=== PATIENT | male | born 1965 | race Caucasian/White ===

== ENCOUNTER 2019-10-07 19:45 | Inpatient (IN) | payer OTHER ==
[~2019-10-07] VITALS: Ht 172.7 cm; Wt 97.7 kg
[~2019-10-07 19:45] MED LIST: CYCL10 PO; ERYT.5TO LEFTEYE; GLIP10 PO; IBUP800 PO; METF500C PO; PREG100 PO
[2019-10-07 20:26] LABS: BASOPHILS ABSOLUTE AUTO 0.14 K/mm3 (0.00-0.23); BASOPHILS PERCENT AUTO 1 % (0-2); EOSINOPHILS ABSOLUTE AUTO 1.39 K/mm3 (0.00-0.68); EOSINOPHILS PERCENT AUTO 14 % (0-6); Hematocrit 43.6 % (37.0-53.0); Hemoglobin 13.7 g/dL (13.5-17.5); IMMATURE GRAN ABSOLUTE AUTO 0.02 K/mm3 (0.00-0.10); IMMATURE GRAN PERCENT AUTO 0 % (0-1); LYMPHOCYTES ABSOLUTE AUTO 1.77 K/mm3 (0.84-5.20); LYMPHOCYTES PERCENT AUTO 17 % (21-46); MONOCYTES ABSOLUTE AUTO 0.55 K/mm3 (0.16-1.47); MONOCYTES PERCENT AUTO 5 % (4-13); Mean Corpuscular HGB 26.6 pg (26.0-34.0); Mean Corpuscular HGB Conc 31.4 g/dL (31.5-36.5); Mean Corpuscular Volume 85 fL (80-100); Mean Platelet Volume 10.3 fL (9.1-12.4); NEUTROPHILS ABSOLUTE AUTO 6.37 K/mm3 (1.96-9.15); NEUTROPHILS PERCENT AUTO 62 % (41-73); Platelet Count 237 K/mm3 (150-400); RDW Coefficient Variation 14.3 % (11.7-14.2); Red Blood Cell Count 5.16 M/mm3 (4.30-5.90); White Blood Cell Count 10.24 K/mm3 (4.00-11.30)
[2019-10-07 20:46] LABS: Alanine Aminotransfer (ALT/SGP 56 U/L (12-78); Albumin, Blood 4.1 g/dL (3.4-5.0); Albumin/Globulin Ratio 1.2 (0.8-1.8); Alk Phos 86 U/L (50-136); Anion Gap 2 mmol/L (6-16); Aspartate Aminotrans (AST/SGOT 43 U/L (12-37); Bilirubin, Total 0.2 mg/dL (0.1-1.0); Blood Urea Nitrogen 10 mg/dL (8-24); Bun/Creatinine Ratio 12.9 (12.0-20.0); CO2, Blood 32 mmol/L (21-32); Calcium, Blood 9.3 mg/dL (8.5-10.1); Chloride, Blood 101 mmol/L (98-108); Creatinine, Blood 0.77 mg/dL (0.60-1.20); Globulin, Blood 3.3 g/dL (2.2-4.0); Glomerular Filtration Rate >60 (60-); Glucose, Blood 141 mg/dL (70-99); Potassium, Blood 4.1 mmol/L (3.5-5.5); Sodium, Blood 135 mmol/L (136-145); Total Protein, Blood 7.4 g/dL (6.4-8.2); Troponin I 0.021 ng/mL (0.000-0.040)
[2019-10-07] MEDS ORDERED: METO25ER PO (22:09)
[2019-10-07] MEDS ORDERED: Lyrica150 MG PO (22:09)
[2019-10-07] MEDS ORDERED: ATOR20 PO (22:09)
--- NOTE | 2019-10-08 | NUR ---
PATIENT ARRIVED TO ICU 10 VIA GURNEY FROM ED WITH NITRO DRIP INFUSING AT 10 MCG FOR HYPERTENSION. ON 2L/NC. PATIENT TRANSFERRING SELF TO BED, REFUSING TO TAKE PANTS OFF AT THIS TIME. PATIENT PLACED ON ICU MONITORS. PATIENT ABLE TO AMBULATE TO TOILET WITHOUT DIFFICULTY. PATIENT VERBALIZED THAT HE HAS CHRONIC BACK PAIN, REQUESTING HIS ROUTINE NIGHT MEDICATIONS TO HELP WITH HIS BACK PAIN. DOCTOR PAULO CALLED AND ORDERS OBTAINED.
--- NOTE | 2019-10-08 06:51 | NUR ---
SUMMARY PATIENT AWAKE UP IN CHAIR, C/O BACK PAIN CHRONIC IN NATURE, BUT MORE PAINFUL THAN NORMAL. PATIENTS NORMAL HS MEDICATIONS ORDERED AND GIVEN. NITRO DRIP CONTINUES TITRATED TO 20 MCG. PATIENT VERBALIZED THAT HE IS PLANING ON GOING HOME THIS MORNING, DESPITE NEED FOR NITRO DRIP, AND PLAN FOR ECHO TODAY.
--- NOTE | 2019-10-08 07:34 | NUR ---
ASSUMED CARE: RECEIVED BEDSIDE REPORT FROM NOC RN. PT IS SITTING UP IN THE RECLINER WITH SON AT HIS SIDE. PT VERBALIZES IT IS OK TO DO REPORT WITH SON IN THE ROOM. PT ACTIVLY PARTICIPATES VERBALY WITH REPORT. PT IS CURRENTLY ON NITRO DRIP AT 20 MCG/MIN. PT APPEARS ANXIOUS ABOUT WANTING TO BE DISHCARGED AND CONTINUES TO ASK WHEN THE DR WILL BE IN AND IF HE WILL BE GETTING DISCHARGED. WILL CONTINUE TO MONITOR.
--- NOTE | 2019-10-08 14:38 | NUR ---
UPDATE & STATUS CHANGE: CALLED DR BOYD TO DISCUSE PLAN OF CARE. NITRO TO BE TURNED OFF AND DR BOYD IS PLACING PRN MEDICATIONS FOR ELIVATED BP. STATUS CHANGE TO MEDICAL WITH TELE. WILL CONTINUE TO MONITOR. NITRO OFF AT THIS TIME.
--- NOTE | 2019-10-08 14:45 | NUR ---
DIFFICULT TO WAKE: PT IS NOTED TO BE SLEEPING UPON ENTERING THE ROOM. SON IS AT BEDSIDE. PT IS TOLD MEDICATIONS ARE SCHEDULED TO BE GIVEN AT THIS TIME. PT APPEARS TO WAKE SLIGHTLY, BUT UPON FURTHER ASSESSMENT IS CLEARLY NOT AWAKE. SON APPEARS TO BECOME CONCERNED WELL AND STANDS AT THE BEDSIDE AND SHAKES PATIENTS SHOLDER. UPON FURTHER VERBAL STIMULATION PT STATES HE IS IN [place], BUT EVENTUALLY STATES [facility] AND IS ABLE TO STATE WHAT BROUGHT HIM IN TO THE HOSPITAL AND EARLIER CONVERSATIONS WORD FOR WORD THAT WERE HAD WHEN THE DR WAS IN THE ROOM EARLIER IN THE DAY.
--- NOTE | 2019-10-08 15:29 | NUR ---
Echocardiogram completed.
--- NOTE | 2019-10-08 17:35 | NUR ---
SHIFT SUMMARY: NGT DRIP WAS TURNED OFF AND PT BP HAS STABALIZED KEEPING SBP BELOW 160 WITH NEW PO MEDICTIONS ORDERED AND PRN HYDRALAZINE ORDERED PRN. PT HAS APPEARED TO BE RESTING MOST OF THE DAY EITHER IN THE BED OR IN THE RECLINER. PT HAS REQUIRED 3L O2 VIA NC TO KEEP O2 SATS >90%. PT IS USUALLY ON RA AT HOME. PT STATES SOME ANXIETY TO BEING IN THE HOSPITAL STATING HIS MIND SET IS "YOU GO TO THE HOSPITAL TO ". PT HAS BEEN VERY COOPERATIVE AND PLESENT T/O THE DAY. CALL LIGHT IN REACH. BED IN LOWEST POSSITION. WILL CONTINUE TO MONITOR AND REPORT TO ONCOMING RN.
--- NOTE | 2019-10-08 20:00 | NUR ---
ASSUMPTION OF CARE: PT A&O. IN ST, HR IN THE 100S, SBP 130-160S. BLE EDEMA DECREASING. LUNG SOUNDS CLEAR AND DIM IN BASES. SPO2 >90% ON 4L NC. PT ABLE TO VOID ON OWN. PT HAS 2 IVS IN L ARM. SL AND PATENT. PT CURRENTLY UP IN CHAIR WATCHING TV
--- NOTE | 2019-10-09 05:33 | NUR ---
NO ACUTE CHANGES THROUGHOUT SHIFT. PT RESTED COMFORTABLY. VITALS REMAINED STABLE. PT DID NOT HAVE ANY COMPLAINTS. WILL PASS REPORT TO NEXT SHIFT
--- NOTE | 2019-10-09 08:10 | NUR ---
ASSUMED CARE: REPORT RECEIVED FROM MARGARITA Mercedes RN. ASSUMED CARE OF THIS PT AT APPROX [phone]. ON ASSESSMENT, PT IS A&O, PLEASANT & COOPERATIVE. HE IS INDEPENDENT WITHIN THE ROOM & CALLS APPROPRIATELY FOR ASSISTANCE. LS ARE WHEEZING T/O, FINE CRACKLES NOTED TO RLL. PT CURRENTLY ON 4L NC W/ O2 SATS > 90%. MONITOR SHOWS SR W/ HR 80s, HTN IMPROVING. NO GI/ COMPLAINTS, VOIDS W/O DIFFICULTY. SKIN CDI. WILL CONTINUE TO MONITOR & UPDATE NEEDED.
[2019-10-09 08:52] LABS: Anion Gap 3 mmol/L (6-16); Blood Urea Nitrogen 25 mg/dL (8-24); Bun/Creatinine Ratio 35.9 (12.0-20.0); CO2, Blood 31 mmol/L (21-32); Calcium, Blood 9.2 mg/dL (8.5-10.1); Chloride, Blood 103 mmol/L (98-108); Glomerular Filtration Rate >60 (60-); Glucose, Blood 143 mg/dL (70-99); Potassium, Blood 4.2 mmol/L (3.5-5.5); Sodium, Blood 137 mmol/L (136-145)
--- NOTE | 2019-10-09 11:04 | NUR ---
DR BOYD: PROVIDER AT BEDSIDE TO EVAL PT. PT HAS BEEN PLACED ON 2L NC & THEN ON RA TO MONITOR O2 SATS HE WISHES TO GO HOME. PT TOLERATING RA WELL W/ O2 SATS > 90%, NO DESATURATIONS NOTED W/ ACTIVITY. CXR COMPLETED & PT MAY BE ABLE TO D/C HOME THIS AFTERNOON DEPENDING ON RESULTS OF IMAGING.
[2019-10-09] MEDS ORDERED: ASPI81CH PO (11:49)
[2019-10-09] MEDS ORDERED: NORVASC5 MG PO (11:49)
[2019-10-09] MEDS ORDERED: LISI20 PO (11:54)
[2019-10-09] MEDS ORDERED: TRAM50 PO (12:03)
[2019-10-09] MEDS ORDERED: DEEP SEA44 ML (12:03)
--- NOTE | 2019-10-09 13:45 | NUR ---
Pt. is doing well encouraged him and offered prayers
--- NOTE | 2019-10-09 14:30 | NUR ---
DISCHARGE TO HOME: PT TAKEN OUT VIA WC AT 1430 BY LYNDSEY SOLORZANO. ALL MONITORS & PIVs HAVE BEEN REMOVED. PT VERBALIZES UNDERSTANDING OF D/C INSTRUCTIONS. D/C PACKET & ALL BELONGINGS HAVE BEEN TAKEN W/ PT. MEDS CALLED TO [facility] BY USAMA MUNROE RN.
== END 2019-10-09 14:30 | disposition home or self-care (01) | DRG 189 ==
LOC: ER 19:45 → ICUW 23:43
PROVIDERS: Internal Medicine; Physician Assistant; ADMIT Internal Medicine
DX: J96.01 Acute respiratory failure with hypoxia (principal); I16.1 Hypertensive emergency; I11.0 Hypertensive heart disease with heart failure; Z79.84 Long term (current) use of oral hypoglycemic drugs; M51.36 Other intervertebral disc degeneration, lumbar region; E11.9 Type 2 diabetes mellitus without complications; Z79.82 Long term (current) use of aspirin; I50.9 Heart failure, unspecified
CPT/HCPCS: 36415; 71045; 71046; 80048; 80053; 82947; 83880; 84484; 85025; 85379; 93005; 93010; 93306; 96365; 96375; 99285-25; A9270-GY; J0360; J1650

== ENCOUNTER → 2024-02-07 | Outpatient (CLI) | payer OTHER ==
[~2024-02-07] MED LIST changes: +ASPI81CH PO; +ATOR20 PO; +DEEP SEA44 ML; +LISI20 PO; +Lyrica150 MG PO; +METO25ER PO; +NORVASC5 MG PO; +TRAM50 PO
[2024-02-07 19:18] LABS: U Amphetamine Screen Not Detected; U Barbituate Screen Not Detected; U Benzodiazapine Screen Not Detected; U Buprenorphine Screen Not Detected; U Cannabinoids Screen Not Detected; U Cocaine Screen Not Detected; U Methadone Screen Not Detected; U Methamphetamine Screen Not Detected; U Opiates Screen DETECTED; U Oxycodone Screen Not Detected; U Phencyclidine Screen Not Detected
== END ==
LOC: LAB SHORT 14:18 → LAB 14:18
PROVIDERS: Neuromusculoskeletal Medicine & OMM
DX: Z79.891 Long term (current) use of opiate analgesic (principal)